=== PATIENT | female | born 1990 | race Two or more races ===

== ENCOUNTER 2018-08-30 03:17 | Emergency (ER) | payer MEDICAID, OTHER, SELFPAY ==
[~2018-08-30] VITALS: Ht 170.2 cm; Wt 75.0 kg
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
[2018-08-30 03:40] VITALS: BP 111/62
== END 2018-08-30 03:55 | disposition home or self-care (01) ==
LOC: ED 03:45
DX: S80.212A Abrasion, left knee, initial encounter (principal); S80.211A Abrasion, right knee, initial encounter; V49.49XA Driver injured in collision with other motor vehicles in traffic accident, initial encounter; Y93.89 Activity, other specified; Y92.89 Other specified places as the place of occurrence of the external cause; Y99.8 Other external cause status
CPT/HCPCS: 99283